=== PATIENT | female | born 1985 | race Hispanic/Latino ===

== ENCOUNTER 2018-02-26 10:11 | Day surgery (SDC) | payer OTHER ==
[2018-02-24 11:04] VITALS: BMI 23.6
[2018-02-26 11:05] VITALS: RESP 18
[2018-02-26] MEDS ORDERED: Lactated Ringer's 1,000 ML IV ONE ×2 (11:20→14:30)
[2018-02-26] MEDS ORDERED: Propofol 10 mg/ml Inj (20 ML) ONE (12:17)
[2018-02-26] MEDS ORDERED: Midazolam 2 MG/2 ML VIAL ONE (12:17)
[2018-02-26] MEDS ORDERED: Succinylcholine 200 mg/10 ml Inj IV ONE (12:17)
[2018-02-26] MEDS ORDERED: Dexamethasone 4 mg/1 ml ONE (12:39)
[2018-02-26 14:45] VITALS: O2SAT 99
[2018-02-26 15:44] VITALS: BP 112/78; PULSE 70; TEMP 97.6
--- NOTE | 2018-02-27 00:40 | OP ---
Copied To: Kishore Lozano MD Attending MD: Kishore Lozano MD PROCEDURE DATE: 02/26/2018 PREOPERATIVE DIAGNOSIS: Retained intrauterine device. POSTOPERATIVE DIAGNOSIS: Retained intrauterine device. OPERATION PERFORMED: Operative hysteroscopy. SURGEON: Kishore Lozano MD ANESTHESIA: General. ANESTHESIA ADMINISTERED BY: Kirill Allred MD ESTIMATED BLOOD LOSS: Minimal. URINE OUTPUT: The patient was straight catheterized prior to starting the procedure. FLUIDS: The patient received approximately 350 mL of D5 LR intraoperatively. OPERATIVE FINDINGS: Normal external female genitalia. Urethra normal. Cervix smooth. Uterus anteverted. No adnexal masses. Vagina pink, no discharge. Hysteroscopic findings revealed IUD retained. Positive . No fibroids or polyps noted in the uterine cavity. DESCRIPTION OF PROCEDURE: The IUD was attempted to remove with forceps, unable to do, so the hysteroscope was inserted. The hysteroscopic graspers were then inserted to the scope. The IUD was then grasped and extracted through the os. The specimen was sent to Pathology. All instruments were then removed from the vagina. The patient was taken to the recovery room in stable condition. Kishore Lozano MD
== END 2018-02-26 15:45 | disposition home or self-care (01) ==
LOC: H.OPSURG 10:11
PROVIDERS: ATTEND Obstetrics & Gynecology Gynecology
DX: T83.39XA Other mechanical complication of intrauterine contraceptive device, initial encounter (principal)
CPT/HCPCS: 58562; 88304; J0330; J1100; J2250; J2405; J2704; J3010; J7030; J7120